=== PATIENT | female | born 1965 | race Caucasian/White ===

== ENCOUNTER 2017-05-05 14:20 | Emergency (ER) | payer OTHER ==
[~2017-05-05] VITALS: Ht 162.6 cm; Wt 63.9 kg
[~2017-05-05 14:20] MED LIST: GLUC500 PO; HYDCHL25; Lisinopril2.5 MG; Micro-K10 MEQ
[2017-05-05 18:07] LABS: U Amphetamine Screen Not Detected; U Barbituate Screen Not Detected; U Benzodiazapine Screen Not Detected; U Buprenorphine Screen Not Detected; U Cannabinoids Screen Not Detected; U Cocaine Screen Not Detected; U Methadone Screen Not Detected; U Methamphetamine Screen Not Detected; U Opiates Screen Not Detected; U Oxycodone Screen Not Detected; U Phencyclidine Screen Not Detected; U Propoxyphene Screen Not Detected
== END 2017-05-05 21:00 | disposition home or self-care (01) ==
LOC: ER 14:20
PROVIDERS: Physician Assistant
DX: G43.909 Migraine, unspecified, not intractable, without status migrainosus (principal); I10 Essential (primary) hypertension; Z79.899 Other long term (current) drug therapy; F17.210 Nicotine dependence, cigarettes, uncomplicated
CPT/HCPCS: 96361; 96374; 96375; 99283; J0780; J1100; J1200; J1885; J7030

== ENCOUNTER → 2017-06-13 | Outpatient (CLI) | payer OTHER ==
[~2017-06-13] MED LIST changes: +AMLO5 PO; +TOPI25 PO
[2017-06-13 17:58] LABS: BASOPHILS ABSOLUTE AUTO 0.02 K/mm3 (0.00-0.23); BASOPHILS PERCENT AUTO 1 % (0-2); EOSINOPHILS ABSOLUTE AUTO 0.12 K/mm3 (0.00-0.68); EOSINOPHILS PERCENT AUTO 3 % (0-6); Hematocrit 39.2 % (33.0-51.0); Hemoglobin 13.6 g/dL (11.5-16.0); IMMATURE GRAN ABSOLUTE AUTO 0.01 K/mm3 (0.00-0.10); IMMATURE GRAN PERCENT AUTO 0 % (0-1); LYMPHOCYTES ABSOLUTE AUTO 0.92 K/mm3 (0.84-5.20); LYMPHOCYTES PERCENT AUTO 21 % (21-46); MONOCYTES ABSOLUTE AUTO 0.46 K/mm3 (0.16-1.47); MONOCYTES PERCENT AUTO 10 % (4-13); Mean Corpuscular HGB 32.2 pg (26.0-34.0); Mean Corpuscular HGB Conc 34.7 g/dL (31.5-36.5); Mean Corpuscular Volume 93 fL (80-100); Mean Platelet Volume 8.8 fL (9.1-12.4); NEUTROPHILS ABSOLUTE AUTO 2.88 K/mm3 (1.96-9.15); NEUTROPHILS PERCENT AUTO 65 % (41-73); Platelet Count 179 K/mm3 (150-400); RDW Coefficient Variation 12.3 % (11.7-14.2); RDW Standard Deviation 42.1 fL (35.1-46.3); Red Blood Cell Count 4.22 M/mm3 (3.80-5.20); White Blood Cell Count 4.41 K/mm3 (4.00-11.30)
[2017-06-13 18:17] LABS: Very Low Density Lipoprot Chol 10 mg/dL (6-32)
[2017-06-13 18:18] LABS: Alanine Aminotransfer (ALT/SGP 25 U/L (12-78); Albumin, Blood 3.7 g/dL (3.4-5.0); Albumin/Globulin Ratio 1.2 (0.8-1.8); Alk Phos 93 U/L (50-136); Anion Gap 9 mmol/L (6-16); Aspartate Aminotrans (AST/SGOT 24 U/L (12-37); Bilirubin, Total 1.1 mg/dL (0.1-1.0); Blood Urea Nitrogen 8 mg/dL (8-24); Bun/Creatinine Ratio 13.1 (12.0-20.0); CHOL/HDL RATIO 1.9; CO2, Blood 28 mmol/L (21-32); Calcium, Blood 8.9 mg/dL (8.5-10.1); Chloride, Blood 95 mmol/L (98-108); Cholesterol 210 mg/dL (50-200); Creatinine, Blood 0.61 mg/dL (0.40-1.00); Globulin, Blood 3.1 g/dL (2.2-4.0); Glomerular Filtration Rate >60 (60-); Glucose, Blood 95 mg/dL (70-99); HDL Cholesterol 110 mg/dL (>39); LDL/HDL RATIO 0.8; Low Density Lipoprotein Chol 90 mg/dL (0-110); Potassium, Blood 3.5 mmol/L (3.5-5.5); Sodium, Blood 132 mmol/L (136-145); Total Protein, Blood 6.8 g/dL (6.4-8.2); Triglycerides 51 mg/dL (30-160)
[2017-06-13 21:01] LABS: Free Thyroxine 0.9 ng/dL (0.70-1.60)
[2017-06-13 21:03] LABS: Thyroid Stimulating Hormone 1.43 uIU/mL (0.360-4.800)
== END ==
LOC: LAB UCHC 17:39
PROVIDERS: Nurse Practitioner Primary Care
DX: Z13.9 Encounter for screening, unspecified (principal); I10 Essential (primary) hypertension
CPT/HCPCS: 80053; 80061; 83036; 84439; 84443; 85025

== ENCOUNTER 2017-12-07 18:50 | Emergency (ER) | payer OTHER ==
[~2017-12-07] VITALS: Ht 162.6 cm; Wt 68.0 kg
[~2017-12-07 18:50] MED LIST changes: -AMLO5 PO; -TOPI25 PO
[2017-12-07] MEDS ORDERED: TOPI25 PO (19:29)
[2017-12-07] MEDS ORDERED: AMLO5 PO (19:29)
== END 2017-12-07 20:25 | disposition home or self-care (01) ==
LOC: ER 18:50
DX: M77.12 Lateral epicondylitis, left elbow (principal); M25.531 Pain in right wrist; I10 Essential (primary) hypertension; F17.210 Nicotine dependence, cigarettes, uncomplicated; Z79.899 Other long term (current) drug therapy; W18.30XA Fall on same level, unspecified, initial encounter
CPT/HCPCS: 29125; 73090; 73110; 99283-25

== ENCOUNTER 2019-01-26 16:09 | Emergency (ER) | payer OTHER ==
[~2019-01-26] VITALS: Ht 162.6 cm; Wt 72.6 kg
[~2019-01-26 16:09] MED LIST changes: +AMLO5 PO; +TOPI25 PO
[2019-01-26] MEDS ORDERED: Zithromax250 MG PO (17:05)
[2019-01-26] MEDS ORDERED: BENZ100A PO (17:05)
[2019-01-26] MEDS ORDERED: ALBU90OI INH (17:05)
[2019-01-26] MEDS ORDERED: Sudogest30 MG PO ×2 (17:05→17:07)
[2019-01-26] MEDS ORDERED: Flonase 0.05% N16 GM (17:05)
== END 2019-01-26 17:29 | disposition home or self-care (01) ==
LOC: ER 16:09
DX: R05 Cough (principal); I10 Essential (primary) hypertension; J45.909 Unspecified asthma, uncomplicated; G43.909 Migraine, unspecified, not intractable, without status migrainosus; F17.210 Nicotine dependence, cigarettes, uncomplicated; Z79.899 Other long term (current) drug therapy
CPT/HCPCS: 71046; 99283-25

== ENCOUNTER 2024-04-06 13:33 | Inpatient (IN) | payer OTHER ==
[~2024-04-06] VITALS: Ht 162.6 cm; Wt 73.2 kg
[~2024-04-06 13:33] MED LIST changes: +ALBU90OI INH; +BENZ100A PO; +Flonase 0.05% N16 GM; +Sudogest30 MG PO; +Zithromax250 MG PO
[2024-04-06 14:24] LABS: CORONAVIRUS COVID-19 AG Negative (NEGATIVE); INFLUENZA A AG Negative (NEGATIVE); INFLUENZA B AG Negative (NEGATIVE)
[2024-04-06 14:37] LABS: RDW Coefficient Variation 11.9 % (11.7-14.2)
[2024-04-06 15:05] LABS: BASOPHILS ABSOLUTE AUTO 0.04 K/mm3 (0.00-0.23); BASOPHILS PERCENT AUTO 1 % (0-2); EOSINOPHILS ABSOLUTE AUTO 0.03 K/mm3 (0.00-0.68); EOSINOPHILS PERCENT AUTO 1 % (0-6); Hematocrit 48.1 % (33.0-51.0); IMMATURE GRAN ABSOLUTE AUTO 0.04 K/mm3 (0.00-0.10); IMMATURE GRAN PERCENT AUTO 1 % (0-1); LYMPHOCYTES ABSOLUTE AUTO 0.78 K/mm3 (0.84-5.20); LYMPHOCYTES PERCENT AUTO 13 % (21-46); MONOCYTES PERCENT AUTO 8 % (4-13); Mean Corpuscular Volume 89 fL (80-100); Mean Platelet Volume 9.5 fL (9.1-12.4); NEUTROPHILS ABSOLUTE AUTO 4.78 K/mm3 (1.96-9.15); NEUTROPHILS PERCENT AUTO 78 % (41-73); Platelet Count 183 K/mm3 (150-400); RDW Standard Deviation 38.2 fL (35.1-46.3); Red Blood Cell Count 5.41 M/mm3 (3.80-5.20); White Blood Cell Count 6.17 K/mm3 (4.00-11.30)
[2024-04-06 15:07] LABS: Albumin, Blood 3.7 g/dL (3.4-5.0); Albumin/Globulin Ratio 0.9 (0.8-1.8); Bilirubin, Total 1.7 mg/dL (0.1-1.0); Bun/Creatinine Ratio 9.9 (12.0-20.0); Calcium, Blood 9.3 mg/dL (8.5-10.1); Creatinine, Blood 0.61 mg/dL (0.40-1.00); Globulin, Blood 4.2 g/dL (2.2-4.0); Potassium, Blood 3.8 mmol/L (3.5-5.5); Total Protein, Blood 7.9 g/dL (6.4-8.2)
[2024-04-06] MEDS ORDERED: Sodium Chloride 3% 100 ML IV SCH (16:00)
[2024-04-06] MEDS ORDERED: Bisacodyl 10 MG Supp PR PRN (16:15)
[2024-04-06] MEDS ORDERED: FLU VACC TS2024-25(6MOS UP)/PF 45 MCG/0.5 ML SYRINGE IM SCH (16:15)
[2024-04-06] MEDS ORDERED: HydrALAZINE HCl 20 MG / ML 1ML Vial IV PRN (16:15)
[2024-04-06] MEDS ORDERED: Ondansetron HCl 2 MG / ML 2ML Vial IV PRN (16:20)
[2024-04-06] MEDS ORDERED: LORazepam 2 MG/ML 1ML Injection IV PRN ×3 (16:20→16:25)
[2024-04-06] MEDS ORDERED: Magnesium Hydroxide Conc 10 ML UDC PO PRN (16:20)
[2024-04-06] MEDS ORDERED: TraZODone HCl 50 MG Tab PO PRN (16:20)
[2024-04-06] MEDS ORDERED: Acetaminophen 325 MG TABLET PO PRN (16:20)
[2024-04-06] MEDS ORDERED: NS 1,000 ML IV SCH (16:20)
[2024-04-06] MEDS ORDERED: Loperamide HCl 2 MG Cap PO PRN (16:25)
[2024-04-06] MEDS ORDERED: OxyCODONE 5 mg/Acetamin 325 mg TABLET PO PRN (16:35)
[2024-04-06] MEDS ORDERED: Topiramate 25 MG Tab PO PRN (16:45)
[2024-04-06 16:53] LABS: Source, Urine Clean Catch
[2024-04-06 16:58] LABS: Appearance, Urine Clear (Clear); Bilirubin, Urine Neg (Neg); Blood, Urine Neg (Neg); Color, Urine Amber (P-Yellow); Glucose Qualitative, Urine Neg (Neg); Ketones, Urine 2+ (Neg); Leukocyte Esterase, Urine 1+ (Neg); Nitrite, Urine Neg (Neg); Protein, Urine 2+ (Neg); Urobilinogen, Urine 1+ (Normal)
[2024-04-06] MEDS ORDERED: Thiamine HCl 100 MG in NS 50 ML IV SCH (17:00)
[2024-04-06] MEDS ORDERED: Folic Acid 1 MG in NS 50 ML IV SCH (17:00)
[2024-04-06 17:13] LABS: Bacteria Few /hpf; Red Blood Cells, Urine Not Seen /hpf (0-2); Squamous Epithelial Cells Few /hpf (Few); White Blood Cells, Urine 0-2 /hpf (0-5)
[2024-04-06] MEDS ORDERED: NS 1,000 ML IV ONE (17:28)
[2024-04-06 20:02] VITALS: BP 150/83
[2024-04-06 21:00] VITALS: BP 143/80
[2024-04-06] MEDS ORDERED: Famotidine 20 MG Tab PO SCH (21:00)
[2024-04-06] MEDS ORDERED: Lactobacil 2-S.Thermo-Bifido 1 1 Cap PO SCH (21:00)
[2024-04-06] MEDS ORDERED: Cephalexin Monohydrate 500 MG Cap PO SCH (21:00)
[2024-04-06] MEDS ORDERED: AmLODIPine Besylate 5 MG Tab PO SCH (21:00)
[2024-04-06 22:00] VITALS: BP 179/82
[2024-04-06 23:00] VITALS: BP 156/97
[2024-04-06 23:49] LABS: Bun/Creatinine Ratio 12.3 (12.0-20.0); Calcium, Blood 9.1 mg/dL (8.5-10.1); Creatinine, Blood 0.57 mg/dL (0.40-1.00); Potassium, Blood 3.8 mmol/L (3.5-5.5)
[2024-04-07] VITALS (11 sets, daily range): BP systolic 114–196; BP diastolic 72–99
--- NOTE | 2024-04-07 01:58 | NUR ---
ADMISSION: PATIENT IS ALERT AND ORIENTED X 4. USE THE CALL LIGHT APPROPRIATE BASELINE OF ANXIETY CIWA 2. ENDORSES 6-8, 16OZ BEERS. HAS BEEN SLOWLY DECREASING WITH THE GOAL OF STOPPING. EDUCATED ON SIGNS AND SYMPTOMS OF WITHDRAWAL, ENDORSES THAT SHE HAS NOT STOPPED FOR 3 OR MORE DAY IN ~10 YEARS, EDUCATED ON CODE STATUS (FULL CODE) WANTS FULL TREATMENT TO INCLUDE INTUBATION AND CHEST COMPRESSIONS. DENIES CHEST PAIN/PRESSURE OR SOB. SBA FOR AMBULATION, GENERALIZED WEAKNESS IMPROVING. BLOOD PRESSURE LABILE, INCREASED MONITORING IN PLACE, CAN BE HYPERTENSIVE AT TIMES, AND NORMOTENSIVE AT OTHERS SEE VITALS. SPO2 CONSISTENTLY AT 99-100%. AFEBRILE AT TIME OF NOTE. URINE CULTURE WAITING RESULTS. HAS BEEN ABLE TO VOID AND HAVE A BM WITH NO ISSUE. SKIN C/D/I, MINOR REDNESSS UNDER BREAST, NOTHING OPEN, MOISTURE RELATED, EDUCATED ON HYGIENE AND MOISTURE.
[2024-04-07 05:05] LABS: Hematocrit 42.8 % (33.0-51.0); Hemoglobin 15.9 g/dL (11.5-16.0)
[2024-04-07 05:53] LABS: Bun/Creatinine Ratio 10.8 (12.0-20.0); Calcium, Blood 8.7 mg/dL (8.5-10.1); Creatinine, Blood 0.56 mg/dL (0.40-1.00); Potassium, Blood 3.5 mmol/L (3.5-5.5)
--- NOTE | 2024-04-07 06:16 | NUR ---
EOS: CALL TO PROVIDER AFTER FIRST 8 HOUR DAGOBERTO, INCREASED BY 5, FROM 118 -123 ON NA+, CONTINUE FLUIDS AND MONITOR. CIWA AT THAT TIME STIL 2-3. AM LABS. NA+129. FLUIDS CUT IN HALF. FORM 150 TO 75. NO NEURO CHANGES DIZZINESS IMPROVED, OVERALL PATIENT LOOKS VERY WELL. IMPROVED VERY WELL. DENIES ANXIETY SENTENCES ARE MUCH MORE PUT TOGETHER. DECREASED BRAIN FOG. VOIDING WELL. NO ACUTE CONCERNS THAT HAVE NOT BEEN ADRESSED. PLAN OF CARE CONTINUES.
[2024-04-07] MEDS ORDERED: Fluticasone 0.05% Nasal Spray SCH (09:00)
[2024-04-07] MEDS ORDERED: Enoxaparin 40 MG/0.4 ML SYR SC SCH (09:00)
[2024-04-07] MEDS ORDERED: ChlordiazePOXIDE 25 MG Cap PO PRN ×2 (09:10)
[2024-04-07] MEDS ORDERED: Nicotine 14 MG PATCH TOP SCH (11:50)
--- NOTE | 2024-04-07 17:17 | NUR ---
SHIFT SUMMARY PT A&Ox4, CALLS AND COMMUNICATES NEEDS APPROPRIATELY. CIWA 2-9, MANAGED PER EMAR - SEE ALCOHOL WITHDRAWAL ASSESSMENT. BP STABLE, SINUS 80's, DENIES CP/PRESSURE. SpO2> 92% RA, DENIES SOB. SBA/IND IN ROOM. NS INFUSING @ 75mls/hr. NO C/O PAIN. NO OTHER EVENTS, WILL REPORT TO ONCOMING RN.
--- NOTE | 2024-04-07 22:04 | NUR ---
ASSUMPTION OF CARE: PATIENT FAIRLY UNCHANGED FROM ASSUMPTION CIWA STABLE AT THE BEGGINING OF THE SHIFT, SLIGHT INCREASE MEDICATED WITH 25 OF LIBRIUM, PCT OUTSIDE ROOM FOR SAFETY. DENIES CHEST PAIN PRESSURE OR SOB AT REST. HOWEVER, DID MEDICATED ~8 FOR CIWA OF 8, PATIENT WITH INCREASED MODERATE ANXIETY, AND PAROXYSMAL SWEAT. PATIENT STILL STEADY ON FEET ABLE TO MAKE NEEDS KNOWN, 75mL OF NS INFUSING, PLAN OF CARE CONTINUES.
[2024-04-07] MEDS ORDERED: Nicotine Polacrilex 2 MG Gum PO PRN (23:55)
[2024-04-08] VITALS (7 sets, daily range): BP systolic 152–192; BP diastolic 79–96
[2024-04-08 03:22] LABS: Hematocrit 41.5 % (33.0-51.0); Hemoglobin 14.9 g/dL (11.5-16.0)
[2024-04-08 03:37] LABS: Bun/Creatinine Ratio 12.2 (12.0-20.0); Calcium, Blood 8.8 mg/dL (8.5-10.1); Creatinine, Blood 0.49 mg/dL (0.40-1.00); Potassium, Blood 3.5 mmol/L (3.5-5.5)
--- NOTE | 2024-04-08 05:15 | NUR ---
EOS: PATIENT WITHDRAWAL INCREASED AROUND MIDNIGHT CIWA FROM 8 TO 13 NEEDED ATIVAN FOR SYMPTOM MANAGEMENT. PATIENT MILDLY ATIVAN NAIVE, HOWEVER, CLOUDED SENSORIUM IS THE MAIN, FOLLOWED BY ANXIETY. PATIENT ALERT AND ORIENTED X4 MAKES COMMENTS OF "IS THIS REAL." AND "IS THIS REALLY HAPPENING." PATIENT HAS BEEN DIRECTABLE FOR THE TIME BEING, GENERALLY WEAK . SODIUM IS 137 THIS AM. CURRENLTY SLEEPING WELL, CONTINUOUS TELE AND PULSE OX IN PLACE. DENIES CHEST PAIN PRESSURE OR SOB. BLOOD PRESSURE PREVIOUS SHIFT LABILE. AM VITALS 162/96 MANUAL WORKED BEST FOR BLOOD PRESSURE VOINDING WELL. PLAN OF CARE CONTINUES.
[2024-04-08] MEDS ORDERED: Albuterol HFA200 ACT/6.7 GM INH INH PRN (10:40)
[2024-04-08] MEDS ORDERED: Lisinopril 10 MG Tab PO SCH (11:00)
--- NOTE | 2024-04-08 18:24 | NUR ---
SHIFT SUMMERY: NEURO: PT A&OX4. FOLLOWS COMMANDS. PT WILL SOMETIMS CALL BUT WILL ALSO TRY TO GET OUT OF BED WITHOUT ANY ASSISTANCE. PT ANXIOUS OFF AND ON TODAY. PT WAS ONLY MEDICATED ONCE FOR A CIWA OF 10 OTHERWISE HER HIGHEST CIWA WAS 4. CARDIAC: PT HAS BEEN HYPERTENSIVE DURING SHIFT, PROVIDER AWARE. DENIES ANY CP DURING SHIFT. RESP: REMAINS ON RA. DENIES ANY SOB. NO OTHER SIGNIFICANT EVENTS HAPPENED DURING THIS SHIFT. WILL CONTINUE TO CARE FOR PT TILL END OF SHIFT.
--- NOTE | 2024-04-08 21:47 | NUR ---
ASSUMPTION OF CARE: PATIENT MEDCIATED ONCE FOR CIWA OF 8. PATINET NO LONGER INFUSING NS. PATIENT IS ALERT AND ORIENTED X 4, RECIEVED 1 X DOSE OF ATIVAN AND LIBRIUM FROM DAY RN. NICOTINE PATCH RIGHT SHOULDER. PATIENT IS MILDLY HYPERTENSIVE EVENING BP MEDS GIVEN. BED ALARM FOR SAFETY. SBA TO BATHROOM. VOINDING WELL. DENIES CHEST PAIN PRESSURE OR SOB AT REST. NO ACUTE CONCERNS FROM THIS RN AT THIS TIME, HIGH RISK FOR DETERIORATION POTENTIAL 72 HOURS OF ALCOHOL FREE.
[2024-04-09 00:09] VITALS: BP 163/88
[2024-04-09 02:56] VITALS: BP 173/91
[2024-04-09 03:24] LABS: BASOPHILS ABSOLUTE AUTO 0.05 K/mm3 (0.00-0.23); BASOPHILS PERCENT AUTO 1 % (0-2); EOSINOPHILS ABSOLUTE AUTO 0.09 K/mm3 (0.00-0.68); EOSINOPHILS PERCENT AUTO 2 % (0-6); Hematocrit 44.4 % (33.0-51.0); IMMATURE GRAN ABSOLUTE AUTO 0.02 K/mm3 (0.00-0.10); IMMATURE GRAN PERCENT AUTO 0 % (0-1); LYMPHOCYTES ABSOLUTE AUTO 1.66 K/mm3 (0.84-5.20); LYMPHOCYTES PERCENT AUTO 29 % (21-46); MONOCYTES ABSOLUTE AUTO 0.52 K/mm3 (0.16-1.47); MONOCYTES PERCENT AUTO 9 % (4-13); Mean Corpuscular HGB 33.5 pg (26.0-34.0); Mean Corpuscular Volume 93 fL (80-100); Mean Platelet Volume 8.7 fL (9.1-12.4); NEUTROPHILS ABSOLUTE AUTO 3.31 K/mm3 (1.96-9.15); NEUTROPHILS PERCENT AUTO 59 % (41-73); Platelet Count 165 K/mm3 (150-400); RDW Coefficient Variation 11.9 % (11.7-14.2); RDW Standard Deviation 41.1 fL (35.1-46.3); Red Blood Cell Count 4.78 M/mm3 (3.80-5.20); White Blood Cell Count 5.65 K/mm3 (4.00-11.30)
[2024-04-09 03:49] LABS: Magnesium, Blood 1.8 mg/dL (1.6-2.4)
[2024-04-09 03:50] LABS: Albumin, Blood 3.6 g/dL (3.4-5.0); Bilirubin, Total 1.1 mg/dL (0.1-1.0); Bun/Creatinine Ratio 9.5 (12.0-20.0); Calcium, Blood 9.3 mg/dL (8.5-10.1); Creatinine, Blood 0.63 mg/dL (0.40-1.00); Globulin, Blood 3.7 g/dL (2.2-4.0); Phosphorus, Blood 2.6 mg/dL (2.5-4.9); Potassium, Blood 3.5 mmol/L (3.5-5.5); Total Protein, Blood 7.3 g/dL (6.4-8.2)
--- NOTE | 2024-04-09 05:17 | NUR ---
EOS: PATIENT THROUGH THE NIGHT ENDORSES AUDITORY DISTURBANCES AMONG PARANOIA INCREASED AGITATION, ANXIETY, SPENT >1 HOUR WITH PATIENT EDUCATING, AND DESPITE REDIRECTION, ENDING UP SCORING AN INCREASED CIWA, MEDICATED WITH 50mg OF LIBRIUM, AFTER AND HOUR WAS STEADIER ON FEET, NOT HAVING MUCH DIFFICULTY WITH CLOUDY SENSORIUM, ABLE TO BE SBA WITH WALKER TO BATHROOM DENIES CHEST PAIN PRESSURE OR SOB AT REST, OR WITH EXERTION. BLOOD PRESSURE HAS BEEN ELEVATED MOST OF THE NIGHT, MOST LIKELY DUE TO AGITATION SHE HAS EXPERIENCING MOST OF THE NIGHT. PATIENT AT THE TIME, IS FINALLY FEELING RESTFUL HAS BEEN UP MOST OF THE NIGHT, PLAN OF CARE CONTNIUES. NO ACUTE DISTRESS CURRENLTY.
[2024-04-09] MEDS ORDERED: NS 500 ML IV SCH (07:00)
[2024-04-09 08:12] VITALS: BP 161/96
--- NOTE | 2024-04-09 08:28 | NUR ---
ASSUMED CARE OF PATIENT. ASSISTED TO BATHROOM AND NS INFUSION INITIATED.
[2024-04-09] MEDS ORDERED: Lisinopril 10 MG Tab PO SCH (09:00)
[2024-04-09] MEDS ORDERED: Thiamine HCl 100 MG Tab PO SCH (09:00)
--- NOTE | 2024-04-09 13:17 | NUR ---
DR PALM, FRANCISCO JAVIER RN AND MARILYNN ABEL RN TO [facility]. DR PALM PROVIDED EDUCATION REGARDING FLUID ITNAKE AND SODIUM BALANCE. PATIENT BEGAN CRYING AND HID HER FACE IN HER HANDS, EXPRESSING SHE FELT LIKE SHE WAS BEING TOLD HER SODIUM BALANCE WAS HER FAULT. DIFFICULT TO CONSOLE, STATING SHE DID NOT WANT ANOTHER DOCTOR COMING INTO HER ROOM BECAUSE SHE IS TIRED OF BEING MADE TO FEEL LIKE HER SODIUM IMBALANCE IS HER FAULT WHEN SHE WAS NEVER TOLD THIS COULD HAPPEN.
[2024-04-09 17:01] VITALS: BP 175/86
[2024-04-09 17:12] VITALS: BP 167/93
--- NOTE | 2024-04-09 17:22 | NUR ---
SPOKE WITH PATIENT'S DAUGHTER AND SON WHO WERE SEEKING AN UPDATE. PATIENT HAD TEXTED THEM SAYING SHE WAS WORRIED THAT SHE WAS BEING SENT HOME TOO EARLY WITHOUT KNOWING WHAT THE CAUSE OF HER LOW SODIUM IS. LET THEM KNOW THE GOAL IS TO RULE OUT ANYTHING URGENT OR LIFE-THREATENING WHILE IN THE HOSPITAL. EXPLAINED THE DOCTORS MAY NOT HAVE THE ANSWER TO WHAT IS CAUSING THE LOW SODIUM, BUT SHE WILL AT LEAST BE STABLE BEFORE BEING DISCHARGED; IT MAY REQUIRE FURTHER DIAGNOSTICS TO BE DONE AN OUTPATIENT. WAS ABLE TO GET SOME CLARIFICATION ON PATIENT'S ETOH CONSUMPTION: PATIENT DRINKS SEVEN TO NINE 16oz KEYSTONE LITE BEERS DAILY AND "HAS FOR YEARS". LAST DRINK WAS THE NIGHT OF 04/05/23. PATIENT IS NOW EXHIBITING MORE ANXIETY; BP ELEVATED, CRYING AND STATES SHE'S FEELING LIKE "SHE MIGHT EXPLODE".
--- NOTE | 2024-04-09 19:22 | NUR ---
END OF SHIFT SUMMARY: A&Ox3-4. [facility]OPERATIVE [facility]. CALLS APPROPRIATELY AND IS ABLE TO ADVOCATE NEEDS EFFECTIVELY. CONTINENT OF BOWEL AND BLADDER. AMBULATING INDEPENENTLY BY END OF DAY. MEDS WHOLE WITH FLUIDS. NO C/O PAIN. C/O AGITATION AND ANXIETY. LBM 4 DAYS AGO; DECLINES OFFER OF STOOL SOFTENERS. TELE DC'd AND STATUS CHANGED TO MEDICAL. INITIATION OF 1500mL FLUID RESTRICTION AND STRICT Is/Os FOR WHICH SHE IS VERY DISPLEASED. SEE NOT REGARDING PROVIDER @ BEDSIDE. SHOWERED TODAY. BED IN LOWEST POSITION, CALL LIGHT WITHIN REACH, ALL NEEDS MET. REPORT TO ONCOMING NURSE.
[2024-04-09 19:54] VITALS: BP 179/89
[2024-04-10 02:00] VITALS: BP 157/84
[2024-04-10 06:32] LABS: Bun/Creatinine Ratio 7.5 (12.0-20.0); Calcium, Blood 9.1 mg/dL (8.5-10.1); Creatinine, Blood 0.67 mg/dL (0.40-1.00); Potassium, Blood 3.7 mmol/L (3.5-5.5)
--- NOTE | 2024-04-10 06:41 | NUR ---
PATIENT TRANSFER / MILL TENDER SECOND OPERATOR SUMMARY PT XFER FROM [facility]. ARRIVED TO ROOM AT 0155 IN WHEELCHAIR. PT ABLE TO TRANSFER WITH SBA. PT UNSTEADY ON FEET. PT ABLE TO ANSWER BASIC ORIENTATION QUESTIONS BUT ATYPICAL PERSONALITY; THE PATIENT ASKING THIS RN TO EXPLAIN DX AND ASKING REPEAT QUESTIONS. BED ALARM IN PLACE. PT ON STRICT I&0 WITH 1500ML FLUID RESTRICTION. PT ASKED MULTIPLE TIMES ABOUT THE FLUID RESTRICTION AND ASKED FOR FLUIDS. PT EXPRESSED SEVERAL TIMES THAT SHE WOULD NOT BE ABLE TO MAINTAIN THIS FLUID RESTRICTION FOR LONG WHEN AT HOME. ORIENTED PT TO ROOM AND CALL LIGHT. CALL LIGHT ACCESSIBLE. BED ALARM IN PLACE. CARE WILL CONTINUE UNTIL REPORT GIVEN TO ONCOMING NURSE.
[2024-04-10 09:41] VITALS: BP 153/80
[2024-04-10] MEDS ORDERED: AMLO5 PO (12:12)
[2024-04-10] MEDS ORDERED: Prinivil10 MG PO (12:12)
[2024-04-10] MEDS ORDERED: Nicoderm Cq1 EAC1 TOP (12:13)
[2024-04-10] MEDS ORDERED: B-1100 M1 PO (12:13)
--- NOTE | 2024-04-10 13:00 | NUR ---
PT DISCHARGED TO HOME VIA [employer] [facility]ICE. PT PROVIDED AND EDUCATED ON DISCHARGE INSTRUCTIONS. ALL VALUABLES RETURNED AND SENT WITH THE PT.
== END 2024-04-10 12:56 | disposition home or self-care (01) | DRG 641 ==
LOC: ER 13:33 → PCU 13:34 → MEDS 13:34 → ERHOLD 13:34 → PCU 21:49 → MEDS 04-10 01:53
PROVIDERS: Internal Medicine; Student in an Organized Health Care Education/Training Program; ADMIT Hospitalist
DX: E87.79 Other fluid overload (principal); E87.1 Hypo-osmolality and hyponatremia; F20.9 Schizophrenia, unspecified; G43.909 Migraine, unspecified, not intractable, without status migrainosus; I10 Essential (primary) hypertension; J45.909 Unspecified asthma, uncomplicated; F10.20 Alcohol dependence, uncomplicated; Z79.899 Other long term (current) drug therapy; F17.210 Nicotine dependence, cigarettes, uncomplicated; J32.9 Chronic sinusitis, unspecified
CPT/HCPCS: 36415; 80048; 80053; 81001; 83735; 84100; 85014; 85018; 85025; 87086; 87428-QW; 93005; 93010; 94760; 94762; 99285-25; A9270; C1751; J0360; J1650; J2060; J3411; J7030; J7040

== ENCOUNTER → 2024-04-13 | Outpatient (CLI) | payer OTHER ==
[~2024-04-13] MED LIST changes: +B-1100 M1 PO; +Nicoderm Cq1 EAC1 TOP; +Prinivil10 MG PO
[2024-04-13 19:23] LABS: BASOPHILS ABSOLUTE AUTO 0.07 K/mm3 (0.00-0.23); BASOPHILS PERCENT AUTO 2 % (0-2); EOSINOPHILS ABSOLUTE AUTO 0.09 K/mm3 (0.00-0.68); EOSINOPHILS PERCENT AUTO 2 % (0-6); Hematocrit 48.3 % (33.0-51.0); Hemoglobin 16.7 g/dL (11.5-16.0); IMMATURE GRAN ABSOLUTE AUTO 0.02 K/mm3 (0.00-0.10); IMMATURE GRAN PERCENT AUTO 0 % (0-1); LYMPHOCYTES ABSOLUTE AUTO 1.33 K/mm3 (0.84-5.20); LYMPHOCYTES PERCENT AUTO 28 % (21-46); MONOCYTES ABSOLUTE AUTO 0.43 K/mm3 (0.16-1.47); MONOCYTES PERCENT AUTO 9 % (4-13); Mean Corpuscular HGB Conc 34.6 g/dL (31.5-36.5); Mean Corpuscular Volume 96 fL (80-100); Mean Platelet Volume 8.9 fL (9.1-12.4); NEUTROPHILS ABSOLUTE AUTO 2.75 K/mm3 (1.96-9.15); NEUTROPHILS PERCENT AUTO 59 % (41-73); Platelet Count 186 K/mm3 (150-400); RDW Coefficient Variation 11.9 % (11.7-14.2); RDW Standard Deviation 41.6 fL (35.1-46.3); Red Blood Cell Count 5.06 M/mm3 (3.80-5.20); White Blood Cell Count 4.69 K/mm3 (4.00-11.30)
[2024-04-13 20:11] LABS: Alanine Aminotransfer (ALT/SGP 47 U/L (12-78); Alk Phos 98 U/L (50-136); Anion Gap 10 mmol/L (3-11); Aspartate Aminotrans (AST/SGOT 27 U/L (12-37); Bilirubin, Direct 0.3 mg/dL (0.0-0.3); Bilirubin, Indirect 0.9 mg/dL (0.1-0.7); Bilirubin, Total 1.2 mg/dL (0.1-1.0); Blood Urea Nitrogen 12 mg/dL (8-24); Bun/Creatinine Ratio 18.6 (12.0-20.0); CHOL/HDL RATIO 2.5; CO2, Blood 27 mmol/L (21-32); Calcium, Blood 9.7 mg/dL (8.5-10.1); Chloride, Blood 105 mmol/L (98-108); Cholesterol 220 mg/dL (50-200); Creatinine, Blood 0.65 mg/dL (0.40-1.00); Ferritin, Serum 377 ng/mL (8-252); Glomerular Filtration Rate 103 (60-); Glucose, Blood 93 mg/dL (70-99); HDL Cholesterol 87 mg/dL (>39); Iron Serum 101 ug/dL (50-170); LDL/HDL RATIO 1.4; Low Density Lipoprotein Chol 121 mg/dL (0-110); Percent Saturation 36.2 % (15.0-50.0); Potassium, Blood 3.8 mmol/L (3.5-5.5); Sodium, Blood 138 mmol/L (136-145); Total Iron Binding Capacity 279 ug/dL (250-450); Triglycerides 59 mg/dL (30-160); Very Low Density Lipoprot Chol 11 mg/dL (6-32)
== END ==
LOC: LAB 18:47 → LAB SHORT 18:47
PROVIDERS: Nurse Practitioner Family
DX: F10.239 Alcohol dependence with withdrawal, unspecified (principal)
CPT/HCPCS: 80053; 80061; 82248; 82607; 82728; 82746; 83036; 83540; 83550; 83880; 85025

== ENCOUNTER → 2024-07-22 | Outpatient (CLI) | payer OTHER ==
[2024-07-22 19:08] LABS: Percent Saturation 32.5 % (15.0-50.0)
[2024-07-22 19:14] LABS: Albumin, Blood 4.1 g/dL (3.4-5.0); Albumin/Globulin Ratio 1.1 (0.8-1.8); Bun/Creatinine Ratio 18.8 (12.0-20.0); Creatinine, Blood 0.64 mg/dL (0.40-1.00); Globulin, Blood 3.8 g/dL (2.2-4.0); Potassium, Blood 3.8 mmol/L (3.5-5.5); Thyroid Stimulating Hormone 2.55 uIU/mL (0.360-4.800); Total Protein, Blood 7.9 g/dL (6.4-8.2)
[2024-07-25 03:52] LABS: TRANSFERRIN 245 mg/dL (200-360)
[2024-07-25 19:38] LABS: HIV 1,2 COMBO ANTIGEN/ANTIBODY Negative (Negative)
[2024-07-25 19:48] LABS: HEPATITIS C AB CIA INTERP Negative (Negative); HEPATITIS C ANTIBODY CIA INDEX 0.05 IV
== END | disposition home or self-care (01) ==
LOC: LAB SHORT 17:35 → LAB 17:35
PROVIDERS: Family Medicine
DX: Z11.4 Encounter for screening for human immunodeficiency virus [HIV] (principal); Z11.59 Encounter for screening for other viral diseases; I10 Essential (primary) hypertension; E83.118 Other hemochromatosis; F54 Psychological and behavioral factors associated with disorders or diseases classified elsewhere; R63.1 Polydipsia
CPT/HCPCS: 80053; 82728; 83540; 83550; 84443; 84466; 86803; 87389

== ENCOUNTER → 2024-12-16 | Outpatient (CLI) | payer OTHER ==
[2024-12-16 23:06] LABS: Alanine Aminotransfer (ALT/SGP 22.0 U/L (12-78); Albumin, Blood 3.9 g/dL (3.4-5.0); Albumin/Globulin Ratio 1.1 (0.8-1.8); Anion Gap 7.0 mmol/L (3-11); Aspartate Aminotrans (AST/SGOT 12.0 U/L (12-37); Bilirubin, Total 0.8 mg/dL (0.1-1.0); Blood Urea Nitrogen 13.0 mg/dL (8-24); CO2, Blood 29.0 mmol/L (21-32); Calcium, Blood 9.4 mg/dL (8.5-10.1); Chloride, Blood 106.0 mmol/L (98-108); Creatinine, Blood 0.85 mg/dL (0.40-1.00); Globulin, Blood 3.7 g/dL (2.2-4.0); Glucose, Blood 87.0 mg/dL (70-99); Potassium, Blood 3.6 mmol/L (3.5-5.5); Sodium, Blood 138.0 mmol/L (136-145); Total Protein, Blood 7.6 g/dL (6.4-8.2)
== END ==
LOC: LAB 17:44 → LAB SHORT 17:44
PROVIDERS: Family Medicine
DX: I10 Essential (primary) hypertension (principal); F54 Psychological and behavioral factors associated with disorders or diseases classified elsewhere; R63.1 Polydipsia
CPT/HCPCS: 80053